=== PATIENT | male | born 1990 | race Caucasian/White ===

== ENCOUNTER 2024-12-03 22:00 | Emergency (ER) | payer MEDICAID, SELFPAY ==
--- OUTSIDE RECORDS SUMMARY | 2024-11-06 09:15 | XMS_ITS ---
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 SENIOR TECHNICAL BUSINESS ANALYST wellness. * Medical History: Objective: * Vitals: Assessment: Plan: * Treatment: * Billing Information: * Visit Code: * Procedure Codes: * Electronic signature of Marquise Ricketts MD on 12/03/2024 at 10:18 PM EDT Sign off status: Pending * Provider: Chivo Ricketts MD Date: 11/06/2024 Generated for Printi ng/Faxing/eTransmitting on: 12/03/2024 10:18 PM EDT
[2024-12-03 22:04] VITALS: BP 122/75; PULSE 74; TEMP 36.6; O2SAT 97
--- OUTSIDE RECORDS SUMMARY | 2024-12-03 22:18 | XMS_ITS | Patient Health Record ---
Author Organization [facility] vices Address [address] [place], [place] [id number] Care Team Providers Care Supply Chain Systems Manager Name Role Phone Liliam, Justine Unavailable [phone] Allergies No Known Allergies Reason For Referral No Information Problems Problem Type SNOMED Code ICD Code Onset Dates Problem Status W/U Status Risk Notes Problem Dermatophytosis (56564735) Dermatophytosis of other specified sites (B35.8) Active confirmed Comment:F/u in 2 weeks for recheck, or sooner with any additional concerns. All questions answered. PVU., Problem Contact hand eczema (091695945) Contact dermatitis and eczema, due to cause (692.9) (692.9) Active confirmed Comment:Use the prednisone as perscribed. 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) (704.8) Active confirmed Comment:rig ht groin folliculiti s, Problem Tinea pedis (8307562) Dermatophytosis, foot (110.4) (110.4) Active confirmed Encounters Encounter Location Date Provider Diagnosis Third [address] [facility] [place] [address] [place] [address] 11/14/2024 Justine Liliam Plan Of Treatment No Information Insurance Providers Payer Name Payer Address Payer Phone Subscriber Number Group Number Insured Name Patient Relationship to Insured Coverage Start Date Coverage End Date Medicaid [address] [place] [address] [id number] Dorsey, Mathieu Self - patient is the insured Medicaid [address] [place] [address] [id number] Mathieu Dorsey Self - patient is the insured 1 1 Medical (General) History Surgical History Surgery Date(Month/Year) None, ProblemStatus: Active,
--- NOTE | 2024-12-03 22:22 | ED_ITS ---
HPI HPI - General Adult General Chief complaint: Skin/Abscess/Foreign Body Stated complaint: WOUND ON LEFT ANKLE THAT WON'T HEAL Time Seen by Provider: 12/03/24 22:08 Source: patient Mode of arrival: walk-in Limitations: no limitations History of Present Illness HPI narrative: 34-year-old male presents for fleabites. He has been on both ankles and in particular the area on his left lower leg posteriorly is of concern to him. He was worried about an infection. He has been scratching at these areas. He is living at a relatives house and knows he needs to get away from the fleas. He has had this for several days. Related Data Previous Rx's ?Medication ?Instructions ?Recorded cephalexin 500 mg capsule 500 mg PO QID 10 days #40 ca ps 12/03/24 triamcinolone acetonide 0.1 % 1 applic topical TID #30 grams 12/03/24 topical cream Allergies Allergy/AdvReac Type Severity Reaction Status Date / Time No Known Drug Allergies Allergy Verified 12/03/24 22:10 Review of Systems ROS Narrative A ten point review of systems is negative except as noted above. PFSH PFSH Social History Little interest or pleasure in doing things: not at all Feeling down, depressed, or hopeless: not at all Exam Narrative Exam Narrative: Nurses note and vital signs reviewed and patient is not hypoxic. General: The patient appears well and in no apparent distress. Patient is resting comfortably on cart. Skin: Warm, dry, no pallor noted. There are numerous small red slightly raised areas around both ankles, consistent with flea bites. Particularly on the left lower leg distal and posteriorly is an area of congruent erythema. There is no open area or drainage or abscess. Head: Normocephalic, atraumatic Eye: Normal conjunctiva, no drainage Ears, Nose, Mouth, and Throat: oral mucosa is moist. Nares patent. Cardiovascular: Regular Rate and Rhythm Respiratory: Patient is in no distress, no accessory muscle use Back: non-tender GI: Soft and nontender Musculoskeletal: The patient has no evidence of calf tenderness, no pitting edema, symmetrical pulses noted bilaterally Neurological: A&O, normal speech Psychiatric: Cooperative Constitutional Vital Signs, click to edit/add: Last Vital Signs Temp 98 F 12/03/24 22:04 Pulse 74 12/03/24 22:04 Resp 18 12/03/24 22:04 BP 122/75 12/03/24 22:04 Pulse Ox 97 12/03/24 22:04 O2 Del Method Room Air 12/03/24 22:04 Course Vital Signs Vital signs: Vital Signs Temperature 98 F 12/03/24 22:04 Pulse Rate 74 12/03/24 22:04 Respiratory Rate 18 12/03/24 22:04 Blood Pressure 122/75 12/03/24 22:04 Pulse Oximetry 97 12/03/24 22:04 Oxygen Delivery Method Room Air 12/03/24 22:04 Temperature 98 F 12/03/24 22:04 Pulse Rate 74 12/03/24 22:04 Respiratory Rate 18 12/03/24 22:04 Blood Pressure 122/75 12/03/24 22:04 Pulse Oximetry 97 12/03/24 22:04 Oxygen Delivery Method Room Air 12/03/24 22:04 Medical Decision Making MDM Narrative Medical decision making narrative: He will be placed on Kenalog and Keflex and understands he needs to get away from the fleas. Treatment diagnosis and follow-up were discussed with the patient. Differential Diagnosis Differential Diagnosis: Fleabites, cellulitis Discharge Plan Discharge Chief Complaint: Skin/Abscess/Foreign Body Clinical Impression: Flea bite of multiple sites Patient Disposition: Home, Self-Care Time of Disposition Decision: 22:21 Condition: Good Mode of Transportation: Private Vehicle Prescriptions / Home Meds: New cephalexin 500 mg capsule 500 mg PO QID 10 Days Qty: 40 0RF triamcinolone acetonide 0.1 % cream 1 applic topical TID Qty: 30 0RF Print Language: Kyrgyz Instructions: Insect Bite or Sting (ED) Referrals: Physician,Non-Staff, MD [Primary Care Provider] - 1 week
[2024-12-03] MEDS: CEPHALEXIN 500 MG CAPSULE PO (22:33)
== END 2024-12-03 22:40 | disposition home or self-care (01) ==
PROVIDERS: Emergency Provider Emergency Medicine
DX: L29.89 Other pruritus (principal); W57.XXXA Bitten or stung by nonvenomous insect and other nonvenomous arthropods, initial encounter
CPT/HCPCS: 99283